=== PATIENT | male | born 1950 | race Caucasian/White ===

== ENCOUNTER 2021-07-03 11:38 | Outpatient (CLI) | payer MEDICARE, SELFPAY ==
[2021-07-03 13:18] LABS: Basophils Percent Auto 0.5 % (0.2-1.2); Eosinophils Percent Auto 0.7 % (0-4.4); Hematocrit 48.1 % (42.0-52.0); Hemoglobin 15.7 g/dL (14.0-18.0); Immature Granulocyte Absolute 0.02 K/mm3 (0.00-0.031); Immature Granulocyte Percent A 0.3 % (0-0.5); Lymphocytes Absolute Auto 1.03 K/mm3 (0.9-3.2); Lymphocytes Percent Auto 17.6 % (18.3-44.2); Mean Corpuscular HGB Conc 32.6 g/dl (32-36); Mean Corpuscular Hemoglobin 29.2 pg (26-34); Mean Corpuscular Volume 89.6 fl (80-100); Mean Platelet Volume 9.4 fl (7.4-10.4); Monocytes Absolute Auto 0.5 K/mm3 (0.1-0.6); Monocytes Percent Auto 8.2 % (2.6-8.5); Neutrophils Absolute Auto 4.3 K/mm3 (1.3-6.7); Neutrophils Percent Auto 72.7 % (45.5-73.1); Nucleated Red Blood Cells Perc 0.3 % (0.0-0.2); Platelet Count Result 225 k/mm3 (150-375); Red Blood Count 5.37 M/mm3 (4.6-6.20); Red Cell Distribution Width 13.3 % (11.5-14.5); White Blood Count 5.9 K/mm3 (4.5-10.0)
[2021-07-03 13:32] LABS: Albumin Level 4.6 g/dL (3.5-5.1); Anion Gap 7 mmol/L (8-16); Blood Urea Nitrogen 16 mg/dL (9-20); Carbon Dioxide 25 mmol/L (22-30); Chloride 106 mmol/L (98-107); Estimated Glomerular Filt Rate > 60; Glucose 122 mg/dL (65-110); Sodium 138 mmol/L (137-145)
[2021-07-03 13:41] LABS: Urine Cotinine NEGATIVE
[2021-07-03 13:52] LABS: Hemoglobin A1C 6.1 % (<5.7)
== END 2021-07-03 11:39 | disposition home or self-care (01) ==
LOC: ANHSURGERY 11:44
PROVIDERS: PCP Family Medicine; Visit Provider Orthopaedic Surgery
DX: M17.11 Unilateral primary osteoarthritis, right knee (principal); Z01.818 Encounter for other preprocedural examination
CPT/HCPCS: 80048; 80307; 82040; 83036; 85025; 86850; 86900; 86901; 87070

== ENCOUNTER → 2021-07-14 14:01 | Outpatient (CLI) | payer MEDICARE, SELFPAY ==
--- NOTE | ~2021-07-14 | CT_ITS ---
EXAMINATION:CT diagnostic chest w con DATE: 07/14/2021 14:54 INDICATION: Abnormal findings on diagnostic imaging of cardiovascular system. TECHNIQUE: Computed tomography (CT) of the chest was performed with 75 mL Omnipaque 350 intravenous c ontrast. Automated exposure control and iterative reconstruction technique were employed. The dose-le ngth product (DLP) was 514.85 mGy-cm. COMPARISON: None. FINDINGS: There is a 5 mm nodule at the minor fissure. There is a 5 mm nodule in right middle lobe. T here is a 2 mm nodule in right middle lobe. There is mild peripheral septal thickening in the inferio r lungs with subpleural bands in the paraspinal lower lobes. There is mild bronchiectasis in the lowe r lobes. No honeycombing. There is a 5 mm nodule in left lower lobe. A calcified right lung nodule an d calcified right hilar lymph nodes are consistent with old granulomatous disease. No pleural effusio n. The heart size is normal. There are coronary artery calcifications. No pericardial effusion. There is mild thoracic spondylosis. IMPRESSION: 1. Small pulmonary nodules, likely benign. 2. Mild chronic interstitial lung disease. Reviewed, dictated and finalized at location B.
[2021-07-14 14:45] LABS: Estimated Glomerular Filt Rate > 60
== END ==
PROVIDERS: PCP Family Medicine; Visit Provider Internal Medicine Cardiovascular Disease
DX: R93.89 Abnormal findings on diagnostic imaging of other specified body structures (principal); I25.10 Atherosclerotic heart disease of native coronary artery without angina pectoris; J84.9 Interstitial pulmonary disease, unspecified
CPT/HCPCS: 71260; Q9967

== ENCOUNTER 2021-07-16 00:22 | Day surgery (SDC) | payer MEDICARE, SELFPAY ==
[2021-07-03 12:07] VITALS: BP 133/85; PULSE 78; RESP 16; TEMP 36.2; O2SAT 96; BMI 35.2
--- NOTE | 2021-07-03 12:20 | PC.NURSE ---
Report to the Outpatient Waiting Room, entrance under the green pavilion located off [facility], at time __10:00AM on date _07/16/21____. OR Time: __12:00PM . - You and your visitor will be asked a series of questions to screen for COVID 19 for your protection. - Only one visitor is allowed at this time. - The patient visitor is requested to leave or wait in car when not with patient. - A mask is required within the hospital. Patients may have clear liquids (water, carbonated beverages, clear teas, apple juice) until 3 hours prior to surgery with a maximum of 20 ounces. - No food from midnight until time of surgery - Infants may have breast milk until 4 hours before surgery, formula 6 hours prior to surgery. - Children will be allowed to drink immediately following surgery. If applicable, please bring a bottle or sippy cup to assist with drinking. Juice, water, soda, and popsicles are readily available. For infants on formula, please bring formula the day of surgery. Pacifiers are allowed. Take the following medications with a SIP of water the morning of surgery: ___NONE Medications to discontinue per physician HOLD ALL ASPIRIN & VITAMINS/SUPPLEMENTS_7 DAYS PRE-OP Date to take last dose___07/09/21 Please no make-up, nail cymraes, hairspray, perfume, deodorant, or body powder the day of surgery. No jewelry (including any body piercings) or valuables the day of surgery, leave them at home. Please take a shower or bath the night before, or the morning of, surgery with an antibacterial soap. Wear comfortable, loose fitting clothing. Children are encouraged to wear pajamas. - Jewelry must be removed prior to entering the operating room. Rings and piercings that are not removed may be cut off. - The hospital will not accept responsibility for valuables. - Please leave all valuables, including medications, at home the day of surgery. If you are going home after surgery, a licensed lifter/driver must drive you home. - NO public transportation without another adult. - We recommend that an adult stay with you for 24 hours following discharge. - We also recommend that you do not drive, make important decision, drink alcoholic beverages, or take any drugs that were not prescribed by your health care provider for at least 24 hours after your discharge time. For Pediatric surgeries, we recommend two adults accompany the child home (only one inside the building at this time). Follow any additional instructions given to you from your surgeon. If you or anyone in your household have experienced Covid symptoms in the past week, please notify your surgeon or the nurse liaison at the phone number below for possible testing. Telephone instructions given to __PATIENT and asked if any additional questions and then verbalized understanding. Patient advised to call surgeon office or pre surgery nurse liaison [phone] if any additional questions.
--- NOTE | 2021-07-15 09:30 | P.PNAN_ITS ---
Anes - Initial Pre Proc Eval Procedure: Operation Date: 07/16/21 12:00 Proposed Procedures p Right Total Knee Arthroplasty - Guevara Calvin MD Date/Time: 07/15/21 09:30 Surgeon: Guevara Calvin MD Pre Op Diagnosis: OA right knee Patient Data Age: 71 Gender: M Height: 1.7 m Weight: 101.9 kg Last Vital Signs Temp 36.2 C L 07/03/21 12:07 Pulse 78 07/03/21 12:07 Resp 16 07/03/21 12:07 BP 133/85 07/03/21 12:07 Pulse Ox 96 07/03/21 12:07 Allergies Allergy/AdvReac Type Severity Reaction Status Date / Time No Known Allergies Allergy Verified 07/16/21 10:22 Home Medications Medication Instructions Recorded Confirmed Type aspirin [Adult Low Dose Aspirin] 81 mg PO DAILY 07/03/21 07/16/21 History atorvastatin 10 mg PO QAM 07/03/21 07/16/21 History cinnamon bark [Cinnamon] 2,000 mg PO DAILY 07/03/21 07/16/21 History garlic [Garlique] 400 mg PO DAILY 07/03/21 07/16/21 History lisinopril 20 mg PO QAM 07/03/21 07/16/21 History multivitamin [Multiple Vitamin] 1 tablet PO DAILY 07/03/21 07/16/21 History niacin 500 mg PO DAILY 07/03/21 07/16/21 History omega 3-wkh-vxx-fish oil [Fish Oil] 1 cap PO DAILY 07/03/21 07/16/21 History Patient hx anesthesia problems: none Family hx anesthesia problems: none Results Review: All pre-operative results and documents have been reviewed as part of the pre-operative evaluation. [facility] [place] Past Medical History Medical History Diabetes HTN (hypertension) Hyperlipidemia Obesity Osteoarthritis Social History Social History Smoking status: Never smoker Alcohol intake: current Substance use: never Living arrangements: alone Spiritual care concerns: No Anes - Eval Final PreProcedure Day of Procedure 07/15/21 09:30 Patient weight: obese Heart: regular rate and rhythm Lungs: clear to auscultation and normal air movement Airway: Mallampati scale class II Neurological: alert and oriented Last oral intake: >/= 8 hours ASA classification: III Emergent: no Anesthetic plan: proceed Anesthesia type and monitoring: general LMA Results Review: All pre-operative results and documents have been reviewed as part of the pre-operative evaluation. Informed Consent: The patient's anesthetic plan and its attendant risks and benefits were discussed with the patient/family/POA. Questions were solicited and answers provided to the satisfaction of the patient/family/POA.
[2021-07-16] VITALS (14 sets, daily range): BP systolic 120–154; BP diastolic 66–88; PULSE 78–101; RESP 15–19; TEMP 36.4–37.7; O2SAT 93–99; BMI 34.2; BMI 36.3
--- NOTE | ~2021-07-16 | XR_ITS ---
EXAM: XR knee RT 2V DATE: 07/16/2021 18:40 HISTORY: RT TOTAL KNEE . COMPARISON: None available. FINDINGS: Right total knee arthroplasty, in good position, no hardware fracture or perihardware luce ncy. Soft tissue anchors in the fibular head. Expected postsurgical changes in the soft tissues. No r adiopaque foreign body. IMPRESSION: No radiographic evidence of procedure or hardware related complication. Reviewed, dictated and finalized at location K. IMPRESSION: No radiographic evidence of procedure or hardware related complicat ion.
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
[2021-07-16] MEDS: ACETAMINOPHEN 500 MG TABLET 1000 MG PO ×2 (10:28→23:00)
[2021-07-16] MEDS: TRANEXAMIC ACID 1,000MG/ISO100 1,000 MG/100 ML BAG 200 MG IVPB (10:39)
[2021-07-16] MEDS: LACTATED RINGERS 1,000 ML 30 ML IV CONT ×2 (10:39→18:25)
--- NOTE | 2021-07-16 12:12 | WPDHPUPDATE1 ---
History and Physical Update Update Date/Time: 07/16/21 12:12 History and Physical has been reviewed, including an updated exam of the patient. There are NO changes in the patient's condition. Risks, benefits, and alternatives have been discussed and questions answered. Patient agrees to proceed with procedure.
[2021-07-16] MEDS: ceFAZolin 2 GM/D5W 50 ML 2 GM/50 ML BAG IVPB (12:24)
[2021-07-16] MEDS: ceFAZolin SODIUM 1 GM VIAL 3 GM IRRIGATION (13:09)
[2021-07-16] MEDS: ceFAZolin SODIUM 1 GM VIAL IV PUSH (17:13)
[2021-07-16] MEDS: TRANEXAMIC ACID 1,000 MG/10 ML AMPUL 1000 MG IV PUSH (17:13)
--- NOTE | 2021-07-16 18:26 | W.PM.PROC2 ---
Procedure Note - Detailed Date of Procedure 07/16/21 Pre-op Diagnosis Severe posttraumatic arthritis right knee with distracted lateral compartment and severe varus deformity Post-op Diagnosis Same Procedure Performed Right total knee arthroplasty Surgeon Guevara Calvin MD Bi Report Developer [employer]oegrs Anesthesia General Findings Severe posterolateral corner, lateral collateral ligament and popliteus tendon deficiency Description of Procedure Patient was brought to the operating room and general anesthesia was administered. He received 2 g of Ancef weight based vancomycin 1 g of tranexamic acid preoperatively and the right knee was prepped draped usual fashion. He had an obvious varus deformity and probable posterior subluxation of the tibia on femur in flexion but full extension. Because of the posttraumatic scarring and severe lateral ligamentous instability, this resulted in significant extra difficulty with the procedure adding approximately 2 hours of surgical time. Limb was exsanguinated tourniquet elevated to 300 mmHg. A vastus medialis splitting approach utilized. Infrapatellar and suprapatellar fat pads were excised the quadriceps synovectomy carried out. The patella was small and he flexed to 140 degrees under anesthesia and the vastus medialis muscle was not particularly thick and therefore we elected to use the vastus medialis approach. The patella her 25 mm in thickness was cut to 17 mm and a protector cap applied. Next a guide kat was inserted down the femoral canal after aspiration of canal contents. 8 mm of bone removed off the distal femur for fear he might hyperextend and this removed equal amounts medially and laterally because of medial wear. Next the tibia was cut. We made a cut just a mm proud of the anteromedial defect in this removed 15 mm of bone laterally. The iliotibial band remained intact. And extension the medial side was far tighter than the lateral side. In flexion the lateral side was grossly lax with prominent over distraction. I could see the distal portion of the popliteus tendon but did landed into the posterolateral capsule and I could not palpate competent lateral collateral ligament. Our cut went between the 2 corkscrew screws in the lateral tibial plateau and the 1 that was still in the plateau was removed. His bone density on the medial side was extremely dense and we had to take a little extra time to get a flat cut posteromedially as the skin cut we made tended to cause the soft to skive a little bit. Our goal was to have 0? slope and neutral varus valgus alignment. Some of the very large medial femoral osteophyte was removed and the periphery of the medial osteophyte on the tibial plateau was trimmed. Realizing that the medial collateral ligament alone would provide the only ligamentous stability to this knee, we avoided any release of the medial collateral ligament. We applied the femoral sizing guide at 5? of external rotation which matched Whitesides line. There was pronounced wear of the posterior medial femoral condyle and therefore I translated the guide 2 mm posteriorly both medially and laterally and posterior referencing pinholes were placed and the femur was cut to a size 70 vanguard. This fit line to line medial to lateral and anterior to posterior. Bone quality was excellent. We trialed with the 10 CR and we had appropriate soft tissue tension and stability at 90? medially but lacked at least or 20 degrees of extension. Therefore we immediately removed an additional 2 mm of bone from the distal femur chamfer cuts revisited. The tibia was sized to a 75 placed at proper rotation and punched. We found that anterior subluxation of the tibia was particularly difficult and tight 1st because we wanted to avoid releasing the medial collateral ligament but I think secondly because he had been in a posteriorly subluxed position because of his PCL severe incompetence, for many years. A synovectomy of the
--- NOTE | 2021-07-16 18:43 | SUR.PHASEI ---
1835 xrays of right knee done,dr bravo here to observe results.
[2021-07-16] MEDS: SODIUM CHLORIDE 0.9% IV 1,000 ML 125 ML IV CONT (20:25)
[2021-07-16] MEDS: oxyCODONE HCL (*CRX) 5 MG TAB IR PO (20:28)
[2021-07-16 21:35] LABS: Glucose Point of Care 235 mg/dl (65-105)
[2021-07-17] VITALS: PULSE 79
[2021-07-17] MEDS: oxyCODONE HCL (*CRX) 5 MG TAB IR PO ×4 (01:19→12:19)
[2021-07-17 01:21] VITALS: PULSE 79; RESP 16; O2SAT 96
--- NOTE | 2021-07-17 01:51 | PC.NURSE ---
HOSPITALIST NOTIFIED OF PT CONSULT PER ORDERS FROM DR GOLDBERG.
[2021-07-17 04:00] VITALS: PULSE 80
[2021-07-17 05:59] LABS: Basophils Percent Auto 0.1 % (0.2-1.2); Hematocrit 35.8 % (42.0-52.0); Immature Granulocyte Absolute 0.07 K/mm3 (0.00-0.031); Immature Granulocyte Percent A 0.6 % (0-0.5); Lymphocytes Absolute Auto 0.44 K/mm3 (0.9-3.2); Lymphocytes Percent Auto 3.8 % (18.3-44.2); Mean Corpuscular HGB Conc 32.1 g/dl (32-36); Mean Corpuscular Hemoglobin 29.6 pg (26-34); Mean Platelet Volume 10.2 fl (7.4-10.4); Monocytes Absolute Auto 1.1 K/mm3 (0.1-0.6); Monocytes Percent Auto 9.2 % (2.6-8.5); Neutrophils Absolute Auto 9.9 K/mm3 (1.3-6.7); Neutrophils Percent Auto 86.3 % (45.5-73.1); Platelet Count Result 179 k/mm3 (150-375); Red Blood Count 3.89 M/mm3 (4.6-6.20); White Blood Count 11.5 K/mm3 (4.5-10.0)
[2021-07-17] MEDS: ACETAMINOPHEN 500 MG TABLET 1000 MG PO ×2 (06:15→11:27)
[2021-07-17 06:18] VITALS: BP 109/67; PULSE 80; RESP 16; TEMP 36.9; O2SAT 95
[2021-07-17 06:19] LABS: Anion Gap 8 mmol/L (8-16); Blood Urea Nitrogen 13 mg/dL (9-20); Calcium 7.6 mg/dL (8.4-10.2); Carbon Dioxide 24 mmol/L (22-30); Chloride 100 mmol/L (98-107); Estimated CRCL calculation 83 ml/min; Estimated Glomerular Filt Rate > 60; Glucose 169 mg/dL (65-110); Potassium 4.2 mmol/L (3.4-5.0); Sodium 132 mmol/L (137-145)
--- NOTE | 2021-07-17 07:20 | PM.PNORT ---
Subjective Subjective Date/Time Seen: 07/17/21 07:20 Postop day 1 patient is alert. He verbalized signs are stable. Neurovascular is intact. His dressing is dry. He has been on multiple times to the restroom and doing well with ambulation. Pain overall is very well controlled. Patient has had no nausea overnight. He is feeling very comfortable and overall he is anxious to go home later today. We will plan to have patient work with physical therapy today, once his IV antibiotics have been completed we will plan on discharging him home. Morning Chem panel was noted. CBC at this point was not done yet. Objective Data Vital Signs Vital Signs: Vital Signs - 24 hr 07/16/21 10:24 07/16/21 18:26 07/16/21 18:35 Temperature 36.6 C 37.7 C H Pulse Rate 88 98 96 Respiratory Rate 18 15 17 Blood Pressure 129/75 120/79 132/79 Pulse Oximetry 97 96 99 07/16/21 18:50 07/16/21 19:05 07/16/21 19:20 Temperature Pulse Rate 101 H 100 92 Respiratory Rate 19 15 16 Blood Pressure 137/77 138/84 145/86 H Pulse Oximetry 96 99 94 07/16/21 19:35 07/16/21 19:50 07/16/21 20:00 Temperature Pulse Rate 93 94 88 Respiratory Rate 17 15 Blood Pressure 146/87 H 154/88 H Pulse Oximetry 98 96 07/16/21 20:30 07/16/21 20:45 07/16/21 21:42 Temperature 36.4 C 36.6 C Pulse Rate 92 91 91 Respiratory Rate 16 16 16 Blood Pressure 143/73 H 145/73 H Pulse Oximetry 93 97 97 07/16/21 23:25 07/16/21 23:52 07/17/21 00:00 Temperature 36.4 C 36.4 C Pulse Rate 78 78 79 Respiratory Rate 16 16 Blood Pressure 125/69 128/66 Pulse Oximetry 99 96 07/17/21 01:21 07/17/21 04:00 07/17/21 06:18 Temperature 36.9 C Pulse Rate 79 80 80 Respiratory Rate 16 16 Blood Pressure 109/67 Pulse Oximetry 96 95 Intake/Output Intake/Output: Intake & Output 07/14/21 07/15/21 07/16/21 07/17/21 23:59 23:59 23:59 23:59 Intake Total 900 1050 Output Total 500 Balance 400 1050 Meds/Results Medications: Active Medications Generic Name Dose Route Start Last Admin Trade Name Freq PRN Reason Stop Dose Admin Acetaminophen 1,000 mg 07/17/21 00:00 07/17/21 06:15 Acetaminophen 500 Mg Tablet PO 1,000 mg Q6H EMANI Administration Apixaban 2.5 mg 07/17/21 09:00 Apixaban 2.5 Mg Tablet PO Q12HR [facility] Aspirin 81 mg 07/17/21 09:00 Aspirin 81 Mg Enteric Tablet PO QAM [facility] Atorvastatin Calcium 10 mg 07/17/21 09:00 Atorvastatin 10 Mg Tablet PO QAM [facility] Cephalexin HCl 500 mg 07/17/21 18:00 Cephalexin 500 Mg Capsule PO Q6HR [facility] Cefazolin Sodium 1 gm in 50 mls @ 100 mls/hr 07/16/21 20:00 07/17/21 04:28 Ancef 1 Gm/D5w 50 Ml Pm IVPB 07/17/21 12:29 Infused Q8H [facility] Infusion Vancomycin HCl 1,000 mg in 250 mls @ 250 mls/hr 07/16/21 23:00 07/17/21 00:00 Vancomycin 1,000 Mg/D5w 250 Ml IVPB 07/17/21 11:59 Infused Q12H [facility] Infusion Morphine Sulfate 2 mg 07/16/21 19:58 Morphine Sulfate (*Crx) 2 Mg/Ml Inj IV PUSH Q1H PRN Pain Rated 7-10 Naloxone HCl 0.1 mg 07/16/21 19:58 Naloxone Hcl 0.4 Mg/Ml Vial IV PUSH Q2M PRN Opiate Reversal Oxycodone HCl 5 mg 07/16/21 21:00 07/17/21 04:00 Oxycodone Hcl (*Crx) 5 Mg Tab Ir PO 5 mg Q4HR EMANI Administration Oxycodone HCl 5 mg 07/16/21 19:58 Oxycodone Hcl (*Crx) 5 Mg Tab Ir PO Q4H PRN Pain Rated 4-10 Polyethylene Glycol 17 gm 07/17/21 09:00 Polyethylene Glycol 3350 17 Gm Powd.Pack PO QAM [facility] Senna/Docusate Sodium 2 tab 07/17/21 09:00 Senna/Docusate Sodium Tablet PO BID [facility] Radiology Results: ITS Impressions Knee X-Ray 07/16/21 18:54 IMPRESSION: No radiographic evidence of procedure or hardware related complication. Labs Labs: Laboratory Results - last 24 hr 07/16/21 07/17/21 20:34 05:04 Sodium 132 L Potassium 4.2 Chloride 100 Carbon Dioxide 24 Anion Gap 8 BUN 13 Creatinine 0.80 Estim Creat Clear Calc 83 Estim
--- NOTE | 2021-07-17 07:29 | PM.DS ---
DS: Admitting Diagnosis Discharge Date 07/17 Admitting Diagnosis Right knee DJD DS: Summary Hospital Course Hospital Course: Stable Time Spent with Patient Time attestation: Total time spent providing and/or coordinating discharge services: 71-year-old male who underwent right total knee arthroplasty on 07/16. With the procedure without any complications. Postoperatively he has been afebrile vital signs stable. Neurovascular intact. He is weight-bearing as tolerated. He is on scheduled Tylenol as well as oxycodone 5 mg for pain control. We are not using Celebrex on him due to his low ejection fraction as well as staying on baby aspirin to the time of surgery. He is on Eliquis for DVT prophylaxis. He was up walking the day of surgery to the rest room multiple times as well. He had no nausea from general anesthesia. Overall patient is doing well on postop day 1. He is anxious to go home. Will have the patient work with physical therapy and once IV antibiotics have been completed he will be discharged home on 07/17. He is going home with 10 day course of Keflex due to his history of diabetes. He will also go home with Senokot and MiraLax for constipation. Patient was advised to keep the leg elevated at home to prevent swelling but also do his exercises frequently during the day. He is advised not to sit in the chair except for meals and limiting at that time to 20-30 minutes. Patient was advise any questions or concerns once he goes home he is to call the office otherwise we will see him at his appointment date. DS: Data Data Completed and Pending Labs on day of discharge: Labs from last 24 hours 07/17/21 07/17/21 07/16/21 05:04 05:04 20:34 WBC Pending RBC Pending Hgb Pending Hct Pending MCV Pending MCH Pending MCHC Pending RDW Pending Plt Count Pending MPV Pending Immature Gran % (Auto) Pending Neut % (Auto) Pending Lymph % (Auto) Pending [place] % (Auto) Pending Eos % (Auto) Pending Baso % (Auto) Pending Lymph # (Auto) Pending [place] # (Auto) Pending Eos # (Auto) Pending Baso # (Auto) Pending Abs Immat Gran (auto) Pending Absolute Neuts (auto) Pending Absolute Nucleated RBC Pending Nucleated RBC % Pending Sodium 132 L Potassium 4.2 Chloride 100 Carbon Dioxide 24 Anion Gap 8 BUN 13 Creatinine 0.80 Estim Creat Clear Calc 83 Estimated GFR > 60 Glucose 169 H POC Capillary Glucose 235 H Calcium 7.6 L Discharge Plan Discharge Patient Disposition: Home, Self-Care Discharge Instructions: GUEVARA CALVIN M.D [facility] [address] [place] [address] POST-OPERATIVE DISCHARGE INSTRUCTIONS TOTAL KNEE ARTHROPLASTY 1. When resting, lie on back with leg elevated above heart to minimize swelling. Significant swelling could indicate a blood clot and if this occurs call the office (or go to the ER) to have a venous ultrasound. 2. Do exercise 5 times a day. 3. Do not sit with leg down except for meals. 4. Wound Care: Nursing will give additional dressings at discharge. Patient to change dressing at home 1 week from surgery, then maintain until seen in office. 5. May shower with dressing in place. Stand Alone Forms: General Discharge Instructions Follow-up/Referrals: Guevara Calvin MD [Physician] - Keep Reg. Scheduled Appt. Discharge Medications: New polyethylene glycol 3350 [Miralax] 17 gram Powder In Packet 17 g PO QAM Qty: 30 RF: 0 sennosides-docusate sodium [Senokot-S] 8.6-50 mg Tablet 2 tab PO BID Qty: 60 RF: 0 acetaminophen 500 mg Tablet 1,000 mg PO Q6H Qty: 90 RF: 0 cephalexin 500 mg Capsule 500 mg PO Q6HR Qty: 44 RF: 0 oxycodone 5 mg Tablet 5 mg PO Q4HR Qty: 40 RF: 0 Eliquis 2.5 mg Tablet 2.5 mg PO Q12HR Qty: 27 RF: 0 Continued atorvastatin 10 mg tablet 10 mg PO QA
[2021-07-17 07:59] LABS: Hemoglobin 11.5 g/dL (14.0-18.0)
[2021-07-17 08:00] VITALS: PULSE 100
[2021-07-17] MEDS: ASPIRIN 81 MG ENTERIC TABLET PO (08:03)
[2021-07-17] MEDS: ATORVASTATIN 10 MG TABLET PO (08:03)
[2021-07-17] MEDS: APIXABAN 2.5 MG TABLET PO (08:03)
[2021-07-17] MEDS: polyethylene glycoL 3350 17 GM POWD.PACK PO (08:03)
[2021-07-17] MEDS: SENNA/DOCUSATE SODIUM TABLET 2 TAB PO (08:03)
--- NOTE | 2021-07-17 10:26 | WPDANESPN ---
Anes - Prog Note Post-Op Date/Time: 07/17/21 10:26 Cardiovascular status: normal Respiratory status: normal Airway patency: baseline Mental status: baseline Post-Op hydration status: normal Vital Signs: Last Vital Signs Temp 36.9 C 07/17/21 06:18 Pulse 100 07/17/21 08:00 Resp 16 07/17/21 06:18 BP 109/67 07/17/21 06:18 Pulse Ox 95 07/17/21 06:18 Pain Score (VAS): 2 I/O: Intake & Output 07/16/21 07/17/21 07/17/21 23:59 07:59 15:59 Intake Total 250 1050 480 Output Total 500 Balance -250 1050 480 Laboratory Tests 07/17/21 05:04 07/17/21 05:04 07/16/21 07/17/21 07/17/21 20:34 05:04 05:04 WBC 11.5 H RBC 3.89 L Hgb 11.5 L D Hct 35.8 L MCV 92.0 MCH 29.6 MCHC 32.1 RDW 13.0 Plt Count 179 MPV 10.2 Immature Gran % (Auto) 0.6 H Neut % (Auto) 86.3 H Lymph % (Auto) 3.8 L Kimball % (Auto) 9.2 H Eos % (Auto) 0.0 Baso % (Auto) 0.1 L Lymph # (Auto) 0.44 L Kimball # (Auto) 1.1 H Eos # (Auto) 0.0 Baso # (Auto) 0.0 Abs Immat Gran (auto) 0.07 H Absolute Neuts (auto) 9.9 H Absolute Nucleated RBC 0.0 Nucleated RBC % 0.0 Sodium 132 L Potassium 4.2 Chloride 100 Carbon Dioxide 24 Anion Gap 8 BUN 13 Creatinine 0.80 Estim Creat Clear Calc 83 Estimated GFR > 60 Glucose 169 H POC Capillary Glucose 235 H Calcium 7.6 L Post-procedural complaints: none Patient Feedback: Patient satisfied with anesthetic care.
[2021-07-17 10:58] VITALS: BP 116/68; PULSE 76; RESP 14; TEMP 36.8; O2SAT 98
== END 2021-07-17 13:41 | disposition home or self-care (01) ==
LOC: ANHSURGERY 09:45 → ANH2MED 19:32
PROVIDERS: PCP Family Medicine; Visit Provider Orthopaedic Surgery
PROC: (CPT 27447; principal; 2021-07-16 12:00)
DX: M17.31 Unilateral post-traumatic osteoarthritis, right knee (principal); M17.11 Unilateral primary osteoarthritis, right knee; I10 Essential (primary) hypertension; E11.9 Type 2 diabetes mellitus without complications; E78.5 Hyperlipidemia, unspecified; E66.9 Obesity, unspecified; Z68.36 Body mass index [BMI] 36.0-36.9, adult; Z79.82 Long term (current) use of aspirin
CPT/HCPCS: 27447; 36415; 73560; 80048; 80307; 82040; 82948; 83036; 85025; 86850; 86900; 86901; 87070; 97110; 97161; 97165; A9270; C1713; C1770; C1776; J0171; J0330; J0690; J1100; J1170; J2250; J2270; J2405; J2704; J2795; J3010; J3370; J7030; J7120

== ENCOUNTER 2022-08-03 09:01 | Day surgery (SDC) | payer MEDICARE, SELFPAY ==
[2022-07-10 13:33] VITALS: BMI 36.0
[2022-07-21 09:23] VITALS: BMI 35.9
--- NOTE | 2022-08-03 08:54 | P.PNAN_ITS ---
Anes - Initial Pre Proc Eval Procedure: Operation Date: 08/03/22 11:00 Proposed Procedures p Screening Colonoscopy - Johan Matthews MD Date/Time: 08/03/22 08:54 Surgeon: Johan Matthews MD Pre Op Diagnosis: History of Colon Polyps Patient Data Age: 72 Gender: M Height: 1.7 m Weight: 104 kg Allergies Allergy/AdvReac Type Severity Reaction Status Date / Time No Known Allergies Allergy Verified 08/03/22 10:06 Home Medications Medication Instructions Recorded Confirmed Type multivitamin 1 tablet PO DAILY 07/03/21 08/03/22 History atorvastatin 10 mg tablet 10 mg PO QAM #90 tabs 06/18/22 08/03/22 Rx lisinopril 20 mg tablet 20 mg PO QAM #90 tabs 06/18/22 08/03/22 Rx metformin 500 mg tablet 500 mg PO BID #180 tabs 06/18/22 08/03/22 Rx sodium,potassium,mag sulfates 17.5 See Rx Instructions PO .COMPLEX 07/10/22 07/21/22 Rx gram-3.13 gram-1.6 gram oral soln #354 mL (Suprep Bowel Prep Kit) Patient hx anesthesia problems: none Family hx anesthesia problems: none Results Review: All pre-operative results and documents have been reviewed as part of the pre- operative evaluation. [facility], [facility] Past Medical History Medical History (Updated 08/03/22 @ 08:55 by Hugo Quintana MD) Atherosclerotic heart disease of [place] coronary artery without angina pectoris Diabetes HTN (hypertension) Hyperlipidemia Obesity Osteoarthritis Surgical History Surgical History (Updated 06/18/22 @ 10:13 by Adan Doshi MD) History of total right knee replacement (TKR) Social History Social History Smoking status: Never smoker Second hand tobacco smoke exposure: No Alcohol intake: current Drinks per week: 2 Alcohol use details: rarely Substance use: never Substance use type: does not use Lack of Transportation: No Lack of Food: Never True Current Housing: I Have Housing Concerned About Future Housing: No Difficulty Paying Gas/Electric Bills: No Difficulty Paying for Meds: No Currently Unemployed: No Living arrangements: alone Occupation/Education: retired Gender identity (if verbalized by the patient): Male Sexual Orientation (if Verbalized by the Patient): Straight or Heterosexual Spiritual care concerns: No Anes - Eval Final PreProcedure Day of Procedure 08/03/22 08:54 Patient weight: obese Heart: regular rate and rhythm Lungs: clear to auscultation and normal air movement Airway: Mallampati scale class II Neurological: alert and oriented Last oral intake: >/= 8 hours ASA classification: III Emergent: no Anesthetic plan: proceed Anesthesia type and monitoring: general GIVS Results Review: All pre-operative results and documents have been reviewed as part of the pre- operative evaluation. Informed Consent: The patient's anesthetic plan and its attendant risks and benefits were discussed with the patient/family/POA. Questions were solicited and answers provided to the satisfaction of the patient/family/POA.
[2022-08-03 09:55] VITALS: BMI 34.9
[2022-08-03 09:58] VITALS: BP 134/98; PULSE 86; RESP 16; TEMP 36.8; O2SAT 100
[2022-08-03] MEDS: LACTATED RINGERS 1,000 ML 150 ML IV CONT (10:15)
--- NOTE | 2022-08-03 10:21 | PM.HPGS ---
History of Present Illness History of Present Illness Consent: Risks, benefits, and alternatives have been discussed and questions answered. Patient agrees to proceed with procedure. Chief complaint: History of Colon Polyps Narrative: Ruiz Choi is a 72 year old male Presents for screening colonoscopy. Patient's current weight appetite bowel movements are normal. Patient denies abdominal pain. He has had no bleeding. Family history is significant his sister had colon polyps. Patient's previous colonoscopy in 2011 was unremarkable. Review of Systems Review of Systems: Review of systems noncontributory. [facility] Past Medical History Medical History (Updated 08/03/22 @ 13:55 by Johan Matthews MD) Atherosclerotic heart disease of [place] coronary artery without angina pectoris Diabetes HTN (hypertension) Hyperlipidemia Obesity Osteoarthritis Surgical History Surgical History (Updated 06/18/22 @ 10:13 by Adan Doshi MD) History of total right knee replacement (TKR) Social History Social History Smoking status: Never smoker Second hand tobacco smoke exposure: No Alcohol intake: current Drinks per week: 2 Alcohol use details: rarely Substance use: never Substance use type: does not use Lack of Transportation: No Lack of Food: Never True Current Housing: I Have Housing Concerned About Future Housing: No Difficulty Paying Gas/Electric Bills: No Difficulty Paying for Meds: No Currently Unemployed: No Living arrangements: alone Occupation/Education: retired Gender identity (if verbalized by the patient): Male Sexual Orientation (if Verbalized by the Patient): Straight or Heterosexual Spiritual care concerns: No Meds Home Medications and Allergies Home Medications Medication Instructions Recorded Confirmed Type multivitamin 1 tablet PO DAILY 07/03/21 08/03/22 History atorvastatin 10 mg tablet 10 mg PO QAM #90 tabs 06/18/22 08/03/22 Rx lisinopril 20 mg tablet 20 mg PO QAM #90 tabs 06/18/22 08/03/22 Rx metformin 500 mg tablet 500 mg PO BID #180 tabs 06/18/22 08/03/22 Rx sodium,potassium,mag sulfates 17.5 See Rx Instructions PO .COMPLEX 07/10/22 07/21/22 Rx gram-3.13 gram-1.6 gram oral soln #354 mL (Suprep Bowel Prep Kit) Allergies Allergy/AdvReac Type Severity Reaction Status Date / Time No Known Allergies Allergy Verified 08/03/22 10:06 Vital Signs Vital Signs - 24 hr 08/03/22 09:58 Temperature 98.2 F Pulse Rate 86 Respiratory Rate 16 Blood Pressure 134/98 H Pulse Oximetry 100 Exam Narrative: Physical exam reveals patient to be alert. Vital signs stable. HEENT exam is unremarkable. Patient is anicteric. Lungs are clear to auscultation and percussion. Heart is without murmur or extra sounds. Abdominal exam bowel sounds present soft nontender with no hepatosplenomegaly. Digital external rectal exam is normal. Assessment and Plan Assessment and plan (1) Encounter for screening colonoscopy: Code(s): Z12.11 - Encounter for screening for malignant neoplasm of colon Status: Acute Assessment and Plan: Patient presents today for screening colonoscopy. His sister has had colon polyps before. On previous exam patient did not have colon polyps. Plan for surveillance colonoscopy further recommendations will be given after endoscopy.
[2022-08-03 10:23] LABS: Glucose Point of Care 133 mg/dl (65-105)
[2022-08-03 11:22] VITALS: BP 91/65; PULSE 76; RESP 18; O2SAT 95
[2022-08-03 11:32] VITALS: BP 101/64; PULSE 84; RESP 20; O2SAT 99
[2022-08-03 11:42] VITALS: BP 125/86; RESP 20; O2SAT 97
--- NOTE | 2022-08-03 12:27 | WPDANESPN ---
Anes - Prog Note Post-Op Date/Time: 08/03/22 12:27 Cardiovascular status: normal Respiratory status: normal Airway patency: baseline Mental status: baseline Post-Op hydration status: normal Vital Signs: Last Vital Signs Temp 36.8 C 08/03/22 09:58 Pulse 84 08/03/22 11:32 Resp 20 08/03/22 11:42 BP 125/86 08/03/22 11:42 Pulse Ox 97 08/03/22 11:42 O2 Del Method Room Air 08/03/22 11:42 Pain Score (VAS): 0 I/O: Intake & Output 08/02/22 08/03/22 08/03/22 23:59 07:59 15:59 Intake Total 400 Balance 400 08/03/22 10:19 POC Capillary Glucose 133 H Post-procedural complaints: none Patient Feedback: Patient satisfied with anesthetic care.
== END 2022-08-03 12:05 | disposition home or self-care (01) ==
PROVIDERS: PCP Family Medicine; Visit Provider Internal Medicine Gastroenterology
PROC: 0DJD8ZZ Inspection of Lower Intestinal Tract, Via Natural or Artificial Opening Endoscopic (ICD-10-PCS; CPT 45378; principal; 2022-08-03 11:00)
DX: Z12.11 Encounter for screening for malignant neoplasm of colon (principal)
CPT/HCPCS: 45385